=== PATIENT | male | born 1990 | race Caucasian/White ===

== ENCOUNTER → 2020-08-04 | Outpatient (REF) ==
--- NOTE | 2020-08-04 10:40 | Diagnostic Imaging Report ---
INDICATION: SHORTNESS OF BREATH for the past 4 days, AFTER HEAT EXHAUSTION. TECHNIQUE: Two view chest 10:35 AM CORRELATION STUDY: None FINDINGS: The heart size, mediastinal configuration and pulmonary vasculature are within normal limits. The lungs are mildly hyperinflated. Lungs however are clear with no consolidating infiltrate. There is no significant pleural effusion or pneumothorax. Minimal rightward curvature mid thoracic spine. IMPRESSION: 1. Negative for acute abnormality of the chest. Dictated by: Dictated on workstation # [id number]
== END ==
LOC: OCC 10:18
PROVIDERS: ATTEND Nurse Practitioner Family
DX: R06.02 Shortness of breath (principal)
CPT/HCPCS: 71046

== ENCOUNTER → 2020-08-14 | Outpatient (CLI) | payer BC ==
[~2020-08-14] MED LIST: RT-ALBUTEROL SULF 2.5 MG/3 ML PRE-MIX VIAL INH ONE
== END ==
LOC: RT 12:00
PROVIDERS: ATTEND Nurse Practitioner Family
DX: R06.09 Other forms of dyspnea (principal); R09.89 Other specified symptoms and signs involving the circulatory and respiratory systems
CPT/HCPCS: 93306; 94060; 94726; 94729